=== PATIENT | male | born 1955 | race Caucasian/White ===

== ENCOUNTER 2016-02-28 00:11 | Emergency (ER) | payer OTHER ==
[2016-02-28] MEDS ORDERED: MECLIZINE 25 MG TAB PO STA (00:15)
[2016-02-28] MEDS ORDERED: DIAZEPAM 5 MG/ML 2 ML SYRINGE IVP STA (00:15)
[2016-02-28] MEDS ORDERED: SODIUM CHLORIDE 0.9% 500 ML IV ONE (00:15)
--- NOTE | 2016-02-28 00:17 | ED ---
General Adult HPI - General Stated complaint: NAUSEA, VOMITING,VERTIGO Time Seen by Provider: 02/28/16 00:15 Source: RN notes reviewed - History of Present Illness Initial comments: This is a 60-year-old male who presents emergency department stating that he got up this morning from bed and when he rolled over became very dizzy states it got better but all day he felt a little off. Patient states tonight when he went back to bed and he rolled onto his back on room started spinning he became very sick to his stomach and started vomiting. Patient denies any headache patient denies any numbness or weakness. Patient states that he keeps his eyes closed the symptoms seemed to subside. Patient denies any palpitations chest pain difficulty breathing or shortness of breath. Patient denies any change in his hearing recently. Patient denies any ringing in ears recently. Patient denies any recent fevers or chills. Patient denies any neck pain or stiffness. Patient denies abdominal pain patient denies any diarrhea recently. Patient denies any recent injury or trauma. - Related Data Home Medications Medication Instructions Recorded Confirmed Dipyridamole [Persantine] 75 mg PO BID 02/28/16 02/28/16 Ibuprofen [Advil] 200 mg PO Q6HR PRN 02/28/16 02/28/16 Simvastatin [Zocor] 20 mg PO DAILY 02/28/16 02/28/16 amLODIPine/ATORVASTATIN 1 tab PO DAILY 02/28/16 02/28/16 [amLODIPine/ATORVASTATIN 5-10 mg] Previous Rx's Medication Instructions Recorded Meclizine [Antivert] 25 mg PO TID #20 tab 02/28/16 Allergies Allergy/AdvReac Type Severity Reaction Status Date / Time No Known Allergies Allergy Verified 02/28/16 00:43 Review of Systems ROS Statement: Those systems with pertinent positive or pertinent negative responses have been documented in the HPI. ROS Other: All systems not noted in ROS Statement are negative. General Exam - General Exam Comments Initial Comments: GENERAL: Patient is well-developed and well-nourished. Patient is nontoxic and well- hydrated and is in moderate distress. ENT: Neck is soft and supple. No significant lymphadenopathy is noted. Oropharynx is clear. Moist mucous membranes. Neck has full range of motion without eliciting any pain. I did not notice any nystagmus EYES: The sclera were anicteric and conjunctiva were pink and moist. Extraocular movements were intact and pupils were equal round and reactive to light. Eyelids were unremarkable. PULMONARY: Unlabored respirations. Good breath sounds bilaterally. No audible rales rhonchi or wheezing was noted. CARDIOVASCULAR: There is a regular rate and rhythm without any murmurs gallops or rubs. ABDOMEN: Soft and nontender with normal bowel sounds. No palpable organomegaly was noted. There is no palpable pulsatile mass. SKIN: Skin is clear with no lesions or rashes and otherwise unremarkable. NEUROLOGIC: Patient is alert and oriented x3. Cranial nerves II through XII are grossly intact. Motor and sensory are also intact. Normal speech, volume and content. Symmetrical smile. Cerebellar exam grossly intact. MUSCULOSKELETAL: Normal extremities with adequate strength and full range of motion. No lower extremity swelling or edema. No calf tenderness. LYMPHATICS: No significant lymphadenopathy is noted PSYCHIATRIC: Normal psychiatric evaluation. Normal interpersonal interactions appears functionally intact in deals appropriately with others. No signs of depression. Course Vital Signs 02/28/16 02/28/16 02/28/16 00:41 01:30 02:00 Temperature 98.7 F Pulse Rate 90 76 70 Respiratory 20 18 18 Rate Blood Pressure 133/77 101/58 123/69 O2 Sat by Pulse 98 97 97 Oximetry Medical Decision Making - Medical Decision Making EKG shows a normal sinus rhythm at 71 bpm. It was 150 QRS is 84 Q-T intervals 44 QTC is 439. Patient's EKG shows no ST segment elevation or depression or T wave abnormalities are noted Patient's CT of the brain was normal. Patient's chest x-ray was normal. Patient was medicated with Valium and Antivert he felt somewhat better but not back to his baseline. - Lab Data Result diagrams: 02/28/16 00:35 02/28/16 00:35 Lab Results 02/28/16 02/28/16 02/28/16 Range/Units 00:35 00:35 00:35 WBC 7.2 (3.8-10.6) k/uL RBC 4.86 (4.30-5.90) m/uL Hgb 15.5 (13.0-17.5) gm/dL Hct 45.6 (39.0-53.0) % MCV 93.8 (80.0-100.0) fL MCH 31.8 (25.0-35.0) pg MCHC 34.0 (31.0-37.0) g/dL RDW 12.8 (11.5-15.5) % Plt Count 166 (150-450) k/uL Neutrophils % 65 % Lymphocytes % 20 % Monocytes % 10 % Eosinophils % 2 % Basophils % 1 % Neutrophils # 4.7 (1.3-7.7) k/uL Lymphocytes # 1.4 (1.0-4.8) k/uL Monocytes # 0.7 (0-1.0) k/uL Eosinophils # 0.1 (0-0.7) k/uL Basophils # 0.0 (0-0.2) k/uL PT (9.0-12.0) sec INR (<1.1) APTT (22.0-30.0) sec Sodium 143 (137-145) mmol/L Potassium 3.9 (3.5-5.1) mmol/L Chloride 107 (98-107) mmol/L Carbon Dioxide 25 (22-30) mmol/L Anion Gap 11 mmol/L BUN 12 (9-20) mg/dL Creatinine 0.80 (0.66-1.25) mg/dL Est GFR (MDRD) Af Amer >60 (>60 ml/min/1.73 sqM) Est GFR (MDRD) Non-Af >60 (>60 ml/min/1.73 sqM) Glucose 115 H (74-99) mg/dL Calcium 8.8 (8.4-10.2) mg/dL Magnesium 2.0 (1.6-2.3) mg/dL Total Bilirubin 0.5 (0.2-1.3) mg/dL AST 24 (17-59) U/L ALT 38 (21-72) U/L Alkaline Phosphatase 106 (38-126) U/L Total Creatine Kinase 79 (55-170) U/L CK-MB (CK-2) 0.8 (0.0-2.4) ng/mL CK-MB (CK-2) Rel Index 1.0 Troponin I <0.012 (0.000-0.034) ng/mL Total Protein 6.5 (6.3-8.2) g/dL Albumin 4.1 (3.5-5.0) g/dL 02/28/16 Range/Units 00:35 WBC (3.8-10.6) k/uL RBC (4.30-5.90) m/uL Hgb (13.0-17.5) gm/dL Hct (39.0-53.0) % MCV (80.0-100.0) fL MCH (25.0-35.0) pg MCHC (31.0-37.0) g/dL RDW (11.5-15.5) % Plt Count (150-450) k/uL Neutrophils % % Lymphocytes % % Monocytes % % Eosinophils % % Basophils % % Neutrophils # (1.3-7.7) k/uL Lymphocytes # (1.0-4.8) k/uL Monocytes # (0-1.0) k/uL Eosinophils # (0-0.7) k/uL Basophils # (0-0.2) k/uL PT 10.3 (9.0-12.0) sec INR 1.0 (<1.1) APTT 23.0 (22.0-30.0) sec Sodium (137-145) mmol/L Potassium (3.5-5.1) mmol/L Chloride (98-107) mmol/L Carbon Dioxide (22-30) mmol/L Anion Gap mmol/L BUN (9-20) mg/dL Creatinine (0.66-1.25) mg/dL Est GFR (MDRD) Af Amer (>60 ml/min/1.73 sqM) Est GFR (MDRD) Non-Af (>60 ml/min/1.73 sqM) Glucose (74-99) mg/dL Calcium (8.4-10.2) mg/dL Magnesium (1.6-2.3) mg/dL Total Bilirubin (0.2-1.3) mg/dL AST (17-59) U/L ALT (21-72) U/L Alkaline Phosphatase (38-126) U/L Total Creatine Kinase (55-170) U/L CK-MB (CK-2) (0.0-2.4) ng/mL CK-MB (CK-2) Rel Index Troponin I (0.000-0.034) ng/mL Total Protein (6.3-8.2) g/dL Albumin (3.5-5.0) g/dL Disposition Clinical Impression: Vertigo Disposition: HOME SELF-CARE Condition: Good Instructions: Vertigo (ED) Prescriptions: Meclizine [Antivert] 25 mg PO TID #20 tab Time of Disposition: 02:32
[2016-02-28 00:44] VITALS: TEMP 98.7
[2016-02-28 00:54] LABS: Basophils % (A) 1 %; CH 32.6; Eosinophils # (A) 0.1 k/uL (0-0.7); Eosinophils % (A) 2 %; HCT 45.6 % (39.0-53.0); HDW 2.74; HGB 15.5 gm/dL (13.0-17.5); Luc # (Auto) 0.26; Luc % (Auto) 4; Lymphocytes # (A) 1.4 k/uL (1.0-4.8); Lymphocytes % (A) 20 %; MCH 31.8 pg (25.0-35.0); MCV 93.8 fL (80.0-100.0); Mean Platelet Volume 7.9; Monocytes # (A) 0.7 k/uL (0-1.0); Monocytes % (A) 10 %; Neutrophils # (A) 4.7 k/uL (1.3-7.7); Neutrophils % (A) 65 %; RBC 4.86 m/uL (4.30-5.90); RDW 12.8 % (11.5-15.5); WBC 7.2 k/uL (3.8-10.6); WBC (Perox) 7.28
[2016-02-28 01:00] LABS: Prothrombin Time 10.3 sec (9.0-12.0)
[2016-02-28 01:02] LABS: ALT 38 U/L (21-72); AST 24 U/L (17-59); Alkaline Phosphatase 106 U/L (38-126); Anion Gap 11 mmol/L; Blood Urea Nitrogen 12 mg/dL (9-20); Calcium 8.8 mg/dL (8.4-10.2); Carbon Dioxide 25 mmol/L (22-30); Chloride 107 mmol/L (98-107); Glucose 115 mg/dL (74-99); Non-African American GFR(MDRD) >60 (>60 ml/min/1.73 sqM); Potassium 3.9 mmol/L (3.5-5.1); Sodium 143 mmol/L (137-145); Total Bilirubin 0.5 mg/dL (0.2-1.3); Total Protein 6.5 g/dL (6.3-8.2)
[2016-02-28 01:14] LABS: Creatine Kinase 79 U/L (55-170)
[2016-02-28 01:25] LABS: Creatine Kinase MB 0.8 ng/mL (0.0-2.4); Troponin I <0.012 ng/mL (0.000-0.034)
[2016-02-28 01:31] VITALS: RESP 18
--- NOTE | 2016-02-28 01:36 | CT ---
EXAMINATION TYPE: CT brain wo con DATE OF EXAM: 02/28/2016 1:00 AM COMPARISON: NONE HISTORY: Vertigo CT DLP: 1144.70 mGycm Automated exposure control for dose reduction was used. FINDINGS: There is no acute intracranial hemorrhage, mass effect, or midline shift identified. The ventricles and sulci are within normal limits in size. The globes are intact mucosal thickening is noted in the sphenoid sinus and also ethmoid sinuses with chronic sinusitis changes. IMPRESSION: No acute intracranial hemorrhage, mass effect, or midline shift is seen. Chronic sinusitis changes.
--- NOTE | 2016-02-28 01:43 | XR ---
EXAMINATION TYPE: XR chest 2V DATE OF EXAM: 02/28/2016 12:54 AM COMPARISON: NONE HISTORY: Vertigo TECHNIQUE: Frontal and lateral views of the chest are obtained. FINDINGS: There is no focal air space opacity, pleural effusion, or pneumothorax seen. There is mild cardiomegaly. [id number] degenerative changes are present in the thoracic spine.. IMPRESSION: No acute cardiopulmonary process. Mild cardiomegaly.
[2016-02-28] MEDS ORDERED: ONDANSETRON 4 MG/2 ML VIAL IVP STA (02:16)
[2016-02-28 02:20] VITALS: BP 123/69; PULSE 70
[2016-02-28] MEDS ORDERED: ONDANSETRON 4 MG ODT STARTER PACK 2 TAB BTL PO STA (02:31)
== END 2016-02-28 02:45 | disposition home or self-care (01) ==
LOC: EC 00:11
DX: R42 Dizziness and giddiness (principal); Z79.899 Other long term (current) drug therapy
CPT/HCPCS: 99285; 96374; 96375; 96361; 36415; 93005; 80053; 82550; 82553; 83735; 84484; 85025; 85610; 85730; 71020; 70450; J3360; J2405; S0119

== ENCOUNTER → 2016-04-19 | Outpatient (CLI) | payer OTHER ==
--- NOTE | 2016-04-19 23:00 | MR ---
EXAMINATION TYPE: MR shoulder LT wo con DATE OF EXAM: 04/19/2016 8:11 PM COMPARISON: NONE HISTORY: 60-year-old male pain in left shoulder TECHNIQUE: Multiplanar, multisequence imaging of the left shoulder is performed without contrast. FINDINGS: There is intrinsic signal within the intracapsular portion of the long head biceps tendon that could represent tendinosis or intrasubstance tear. There is moderate fluid seen along the biceps tendon she ath but the tendon remains appropriately situated along the bicipital groove. Subscapularis tendon remains grossly intact. Mild degenerative joint space narrowing with marginal spurring and capsular hypertrophy at the acromi oclavicular joint. No contact upon to the underlying supraspinatus myotendinous junction. There is moderate to severe thickening with heterogeneous signal of the supraspinatus tendon without discrete rotator cuff tear. The infraspinatus tendon also remains intact. No atrophy of the rotator cuff musculature or muscular edema. Evaluation of the glenohumeral joint shows a large tear of the superior labrum that extends back to t he superior posterior quadrant and also seems to extend anteriorly to the mid glenoid. No para labral cyst. There is trace fluid within the subacromial/subdeltoid bursa. The glenohumeral joint appears intact with physiologic joint fluid. No Hill-Sachs deformity or os acromiale. No suspicious bone marrow replacement. IMPRESSION: 1. Moderate to severe supraspinatus tendinosis without discrete rotator cuff tear. 2. Large superior labral tear that extends back to the posterior-superior quadrant and anteriorly to the mid glenoid. 3. Either tendinosis or intrasubstance tear of the intracapsular portion of the long head biceps tend on. Moderate long head biceps tenosynovitis. 4. Mild AC joint osteoarthrosis.
== END | disposition home or self-care (01) ==
LOC: RADMRIMAIN 19:32
PROVIDERS: ATTEND Family Medicine
DX: M65.822 Other synovitis and tenosynovitis, left upper arm (principal); S43.492A Other sprain of left shoulder joint, initial encounter; M75.82 Other shoulder lesions, left shoulder; M19.012 Primary osteoarthritis, left shoulder